=== PATIENT | female | born 1960 | race Caucasian/White ===

== ENCOUNTER 2020-09-07 11:01 | Outpatient (CLI) | payer MEDICAID, SELFPAY ==
--- NOTE | 2020-09-08 11:19 | NURSING ---
Was called by daughter in law to get assistance in ostomy care for patient. 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 Pt had a Velez procedure by Dr Borrero at [facility]. Pt was sent home with no home health or order for ostomy supplies since patient had no insurance. Daughter in law is currently getting supplies through [employer] since patient now has Medicaid. Pt has been having some leakage issues as well as some itching under the ostomy appliance. Appliance removed at this time. 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 Pt is currently using a flat one piece appliance from [employer]. This nurse asked if the surgeon had recently assessed the stoma and patient states she had and that patient was sent to this nurse for assistance. Can assist patient with getting appliances at home, but patient may need the reversal surgery or a revision prior to the scheduled date d/t the stenosis. Will try patient in a one piece flat [employer] and a 1 piece convex [employer] appliance. Daughter in law to update this nurse on the preferred appliance and will get the updated order to [employer]. Answered all questions at this time.
== END 2020-09-07 11:30 | disposition home or self-care (01) ==
LOC: AC 11:03
DX: Z43.4 Encounter for attention to other artificial openings of digestive tract (principal)
CPT/HCPCS: 99211; G0463